=== PATIENT | male | born 1995 | race Two or more races ===

== ENCOUNTER 2025-02-07 18:40 | Emergency (ER) | payer BC | END 2025-02-07 20:21 | disposition home or self-care (01) | LOC: JD.ED 18:40 | DX: S39.011A Strain of muscle, fascia and tendon of abdomen, initial encounter (principal); F17.200 Nicotine dependence, unspecified, uncomplicated; Z79.899 Other long term (current) drug therapy; X58.XXXA Exposure to other specified factors, initial encounter | CPT/HCPCS: 76705; 76705-26; 99283; 99284 ==